=== PATIENT | male | born 1980 | race Caucasian/White ===

== ENCOUNTER 2021-01-15 11:04 | Emergency (ER) | payer MEDICAID ==
[2021-01-15] MEDS ORDERED: BENADRYL 50MG C50 MG PO (12:50)
== END 2021-01-15 12:54 | disposition home or self-care (01) ==
LOC: ER1 11:04
DX: L23.7 Allergic contact dermatitis due to plants, except food (principal); F17.220 Nicotine dependence, chewing tobacco, uncomplicated; Z79.899 Other long term (current) drug therapy
CPT/HCPCS: 99282; J1100